=== PATIENT | male | born 1990 | race Caucasian/White ===

== ENCOUNTER → 2016-05-01 | Outpatient (CLI) | payer OTHER ==
[~2016-05-01] MED LIST: NO HOME MEDICATIONS; ZOFRAN 4MG T4 MG/TAB PO
== END ==
LOC: BHSO 14:57
DX: F33.42 Major depressive disorder, recurrent, in full remission (principal)

== ENCOUNTER → 2016-11-05 | Outpatient (CLI) | payer OTHER | LOC: BHSO 14:56 | DX: F06.32 Mood disorder due to known physiological condition with major depressive-like episode (principal) ==

== ENCOUNTER → 2017-05-06 | Outpatient (CLI) | payer BC | LOC: BHSO 15:00 | DX: F40.10 Social phobia, unspecified (principal) | CPT/HCPCS: G0463 ==

== ENCOUNTER → 2017-10-30 | Outpatient (CLI) | payer SELFPAY | LOC: BHSO 13:54 | DX: F41.1 Generalized anxiety disorder (principal) | CPT/HCPCS: G0463 ==

== ENCOUNTER → 2018-05-05 | Outpatient (CLI) | payer BC | LOC: BHSO 13:51 | DX: F33.42 Major depressive disorder, recurrent, in full remission (principal) | CPT/HCPCS: G0463 ==

== ENCOUNTER → 2018-11-10 | Outpatient (CLI) | payer BC | LOC: BHSO 15:36 | DX: F41.1 Generalized anxiety disorder (principal) | CPT/HCPCS: G0463 ==

== ENCOUNTER → 2019-05-11 | Outpatient (CLI) | payer BC | LOC: BHSO 15:03 | DX: F41.1 Generalized anxiety disorder (principal) | CPT/HCPCS: G0463 ==

== ENCOUNTER → 2019-11-09 | Outpatient (CLI) | payer BC | LOC: BHSO 15:36 | DX: F41.1 Generalized anxiety disorder (principal) | CPT/HCPCS: G0463 ==